=== PATIENT | female | born 1995 | race Hispanic/Latino ===

== ENCOUNTER 2023-03-13 11:05 | Emergency (ER) | payer OTHER ==
[~2023-03-13] VITALS: Ht 160 cm; Wt 59.4 kg
[2023-03-13 11:09] VITALS: BP 132/77; PULSE 58; RESP 16; O2SAT 100
[2023-03-13] MEDS ORDERED: CETI10CA5 PO (13:10)
[2023-03-13] MEDS ORDERED: CEPH500B PO (13:10)
[2023-03-13] MEDS ORDERED: CEPHALEXIN 500 MG CAPSULE PO ONE (13:30)
== END 2023-03-13 13:18 | disposition home or self-care (01) ==
LOC: EDH 11:05
DX: L03.113 Cellulitis of right upper limb (principal); Z79.899 Other long term (current) drug therapy